=== PATIENT | female | born 1955 | race Native Hawaiian/Other Pacific Islander ===

== ENCOUNTER 2018-03-11 14:46 | Outpatient (CLI) | payer BC | END 2018-03-11 20:42 | disposition home or self-care (01) | LOC: MAMMO 14:46 | DX: Z12.31 Encounter for screening mammogram for malignant neoplasm of breast (principal) ==

== ENCOUNTER 2022-12-03 09:24 | Outpatient (CLI) | payer BC | END 2022-12-03 19:11 | disposition home or self-care (01) | LOC: RAD 09:24 | PROVIDERS: ATTEND Internal Medicine Rheumatology | DX: R76.11 Nonspecific reaction to tuberculin skin test without active tuberculosis (principal) ==